=== PATIENT | male | born 1940 | race Caucasian/White ===

== ENCOUNTER 2020-12-19 23:40 | Emergency (ER) | payer MEDICARE ==
[~2020-12-19] VITALS: Ht 172.7 cm; Wt 97.5 kg
--- NOTE | 2020-12-20 00:26 | NUR ---
PT AMBULATED STEADY TO RESTROOM FOR URINE SAMPLE
--- NOTE | 2020-12-20 00:38 | NUR ---
BREAK RN: COLLECTED UA AND WALKED TO LAB, INFORMED NOVA GONSALES ABOUT THE AMOUNT OF BLOOD NOTED IN URINE, PT NAD, BACK TO RESTING ON GURNEY, BED IN LOWEST, CALL LIGHT ON LAP, RAILS ENGAGED, FAMILY AT BS, WCTM.
[2020-12-20 01:14] LABS: MICROSCOPIC INDICATED
[2020-12-20 01:27] VITALS: BP 124/68
== END 2020-12-20 01:51 | disposition home or self-care (01) ==
LOC: ED 12-20 00:33
DX: N39.0 Urinary tract infection, site not specified (principal); R31.9 Hematuria, unspecified; R31.0 Gross hematuria; R10.30 Lower abdominal pain, unspecified; G89.29 Other chronic pain; M25.512 Pain in left shoulder
CPT/HCPCS: 81001; 87077; 87086; 87186; 99284